=== PATIENT | female | born 1995 | race Hispanic/Latino ===

== ENCOUNTER 2021-12-29 10:48 | Emergency (ER) | payer MEDICARE, MEDICAID ==
--- NOTE | 2021-12-29 11:46 | Emergency Department Report ---
ED General Adult HPI - General Chief complaint: Psych Stated complaint: SUICIDAL THOUGHTS Time Seen by Provider: 12/29/21 11:30 Source: patient, RN notes reviewed Mode of arrival: Ambulatory Limitations: No Limitations - History of Present Illness Initial comments: The patient was evaluated in the emergency department for symptoms described in the history of present illness. He/she was evaluated in the context of the global COVID-19 pandemic, which necessitated consideration that the patient might be at risk for infection with the virus that causes COVID-19. Institutional protocols and algorithms that pertain to the evaluation of patients at risk for COVID-19 are in a state of rapid change based on information released by regulatory bodies including the CDC and federal and state organizations. These policies and algorithms were followed during the patient's care in the emergency department. Please note that these policies, procedures and recommendations changed on a rapid basis. The patient is a pleasant and cooperative 26-year-old female, who presents to the ER today with a complaint of painless suicidality. She reports no intenti onal overdose. She reports that she is partially COVID-19 vaccinated. She denies urinary symptoms. She reports the symptoms started this morning. She reports that they are chronic. She denies physical pain. She then endorses that she has a mild headache which is frontal. The headache is not sudden or thunderclap in nature. The headache is not maximal in intensity. It is not described as the worst headache of her life. -: Gradual, hour(s) Severity scale (0 -10): 0 Consistency: constant Improves with: none Worsens with: none Associated Symptoms: denies other symptoms, headaches - Related Data Allergies Allergy/AdvReac Type Severity Reaction Status Date / Time No Known Allergies Allergy Verified 12/29/21 10:50 ED Review of Systems ROS: Stated complaint: SUICIDAL THOUGHTS Other details as noted in HPI Comment: All other systems reviewed and negative Neurological: headache Psychiatric: suicidal thoughts ED Past Medical Hx - Past Medical History Previous Medical History?: Yes Hx Psychiatric Treatment: Yes (schizophrenia, anxiety) - Surgical History Past Surgical History?: No ED Physical Exam - General Limitations: No Limitations General appearance: alert, in no apparent distress - Head Head exam: Present: atraumatic, normocephalic - Eye Eye exam: Present: normal appearance, PERRL, EOMI. Absent: nystagmus - ENT ENT exam: Present: normal exam, normal orophraynx, mucous membranes moist, normal external ear exam - Neck Neck exam: Present: normal inspection, full ROM. Absent: tenderness, meningismus - Respiratory Respiratory exam: Present: normal lung sounds bilaterally. Absent: respiratory distress, wheezes, rales, rhonchi, stridor, decreased breath sounds - Cardiovascular Cardiovascular Exam: Present: regular rate, normal rhythm, normal heart sounds. Absent: bradycardia, tachycardia, irregular rhythm, systolic murmur, diastolic murmur, rubs, gallop - GI/Abdominal GI/Abdominal exam: Present: soft. Absent: distended, tenderness, guarding, rebound, rigid, pulsatile mass - Extremities Exam Extremities exam: Present: normal inspection, full ROM, other (2+ pulses noted in the bilateral upper and lower extremities. There is no palpable cord. negative Homans sign. Muscular compartments are soft. The pelvis is stable.). Absent: pedal edema, calf tenderness - Back Exam Back exam: Present: normal inspection, full ROM. Absent: tenderness, CVA tenderness (R), CVA tenderness (L), paraspinal tenderness, vertebral tenderness - Neurological Exam Neurological exam: Present: alert, oriented X3, normal gait, reflexes normal, other (No facial droop. Tongue midline. Extraocular movements intact bilaterally. Facial sensation intact to light touch in V1, V2, V3 distribution bilaterally. 5 and a 5 strength in 4 extremities. Sensation intact to light touch in 4 extremities.). Absent: motor sensory deficit - Psychiatric Psychiatric exam: Present: flat affect, suicidal ideation - Skin Skin exam: Present: warm, dry, intact, normal color. Absent: rash ED Course Vital Signs 12/29/21 12/29/21 12/29/21 10:50 11:33 11:35 Temperature 98.1 F 98.7 F Pulse Rate 78 67 Respiratory 18 17 Rate Blood Pressure Blood Pressure 112/68 99/64 [Right] O2 Sat by Pulse 100 100 100 Oximetry O2 Sat by Pulse Oximetry [ Digit-Finger] 12/29/21 12/29/21 12/29/21 11:36 11:46 12:00 Temperature Pulse Rate Respiratory 15 Rate Blood Pressure 94/61 94/61 Blood Pressure [Right] O2 Sat by Pulse 100 99 99 Oximetry O2 Sat by Pulse Oximetry [ Digit-Finger] 12/29/21 12/29/21 12/29/21 12:16 12:30 12:50 Temperature Pulse Rate Respiratory Rate Blood Pressure 94/61 94/61 96/69 Blood Pressure [Right] O2 Sat by Pulse 100 100 99 Oximetry O2 Sat by Pulse Oximetry [ Digit-Finger] 12/29/21 12/29/21 12/29/21 13:00 13:06 13:16 Temperature Pulse Rate Respiratory Rate Blood Pressure 103/61 103/61 Blood Pressure [Right] O2 Sat by Pulse 99 100 Oximetry O2 Sat by Pulse 99 Oximetry [ Digit-Finger] 12/29/21 12/29/21 13:30 13:40 Temperature 97.9 F Pulse Rate Respiratory Rate Blood Pressure 115/63 Blood Pressure [Right] O2 Sat by Pulse 100 Oximetry O2 Sat by Pulse Oximetry [ Digit-Finger] - Reevaluation(s) Reevaluation #1: 12/29/21 13:04 Differential diagnosis, including but not limited to: Medical clearance for psychiatric placement, migraine headache, tension headache, cluster headache, encounter for behavioral health screening, encounter for medical screening, passive suicidality Assessment and plan: 26-year-old female who currently resides in a snf, who has an outpatient psychiatrist, presenting to the ER today with a primary complaint of suicidality without plan. While she has a flat affect, she is awake, alert, oriented x3, walks with a steady gait, is not encephalopathic, and is not acutely agitated, combative or belligerent. Her laboratory studies are nonactionable and unremarkable She denies COVID symptoms. Urinalysis and urine drug screen pending, but these are not required for medical clearance, these are obtained in anticipation of psychiatric request. We have requested a psychiatric consultation and evaluation. At this point in time, this patient does not appear to have an immediate medical contraindication to psychiatric admission, evaluation, consultation placement. Patient has a GCS of 15 with an NIH score of 0, and a benign and unremarkable physical/neurologic examination. Neuroimaging not indicated for benign headache, supportive care, analgesia, outpatient follow-up 12/29/21 13:54 Psychiatry team have advised discharge and suggest that this patient is malingering for the purposes of secondary gains. They do not recommend 1013 hold or involuntary confinement. Patient resting comfortably in stretcher at this time, and does not appear to be in any acute distress. Discharged with outpatient resources - Pulse Oximetry Interpretation Digit-Finger Initial Pulse Oximetry Readin O2 Sat by Pulse Oximetry: 99 Actions Taken: none ED Medical Decision Making - Lab Data Result diagrams: 12/29/21 11:55 12/29/21 11:55 Vital Signs 12/29/21 12/29/21 12/29/21 10:50 11:33 11:35 Temperature 98.1 F 98.7 F Pulse Rate 78 67 Respiratory 18 17 Rate Blood Pressure 112/68 99/64 [Right] O2 Sat by Pulse 100 100 100 Oximetry 12/29/21 11:36 Temperature Pulse Rate Respiratory 15 Rate Blood Pressure [Right] O2 Sat by Pulse 100 Oximetry Lab Results 12/29/21 12/29/21 12/29/21 Range/Units 11:55 11:55 11:55 WBC 7.6 (4.5-11.0) K/mm3 RBC 4.04 (3.65-5.03) M/mm3 Hgb 13.6 (10.1-14.3) gm/dl Hct 40.6 (30.3-42.9) % MCV 101 H (79-97) fl MCH 34 H (28-32) pg MCHC 34 (30-34) % RDW 12.5 L (13.2-15.2) % Plt Count 293 (140-440) K/mm3 Sodium 140 (137-145) mmol/L Potassium 4.2 (3.6-5.0) mmol/L Chloride 105.0 (98-107) mmol/L Carbon Dioxide 22 (22-30) mmol/L Anion Gap 17 mmol/L BUN 6 L (7-17) mg/dL Creatinine 0.9 (0.6-1.2) mg/dL Estimated GFR > 60 ml/min BUN/Creatinine Ratio 7 % Glucose 102 H (65-100) mg/dL Calcium 9.7 (8.4-10.2) mg/dL HCG, Qual (Negative) Salicylates < 0.3 L (2.8-20.0) mg/dL Acetaminophen (10.0-30.0) ug/mL Valproic Acid < 2.8 L (50-100) ug/mL Plasma/Serum Alcohol (0-0.07) % 12/29/21 12/29/21 12/29/21 Range/Units 11:55 11:55 11:55 WBC (4.5-11.0) K/mm3 RBC (3.65-5.03) M/mm3 Hgb (10.1-14.3) gm/dl Hct (30.3-42.9) % MCV (79-97) fl MCH (28-32) pg MCHC (30-34) % RDW (13.2-15.2) % Plt Count (140-440) K/mm3 Sodium (137-145) mmol/L Potassium (3.6-5.0) mmol/L Chloride (98-107) mmol/L Carbon Dioxide (22-30) mmol/L Anion Gap mmol/L BUN (7-17) mg/dL Creatinine (0.6-1.2) mg/dL Estimated GFR ml/min BUN/Creatinine Ratio % Glucose (65-100) mg/dL Calcium (8.4-10.2) mg/dL HCG, Qual Negative (Negative) Salicylates (2.8-20.0) mg/dL Acetaminophen 5.0 L (10.0-30.0) ug/mL Valproic Acid (50-100) ug/mL Plasma/Serum Alcohol < 0.01 (0-0.07) % Critical care attestation.: If time is entered above; I have spent that time in minutes in the direct care of this critically ill patient, excluding procedure time. ED Disposition Clinical Impression: Encounter for medical screening examination, Encounter for behavioral health screening, Headache Disposition: 06 HOME HEALTH CARE SERVICE Is pt being admited?: No Does the pt Need Aspirin: No Condition: Stable Additional Instructions: Follow-up with outpatient resources that have been provided to the patient. Follow-up with your therapist or psychiatrist within the next week. Follow-up with a primary care doctor within the next month. Avoid consumption of alcohol, tobacco, and drug products. Please return to the emergency room right away with new pain, worsened pain, migration of pain, projectile vomiting, change in mental status, confusion, inability tolerate liquid feeds, new, worsened or different symptoms not present on the initial emergency room evaluation Referrals: [facility] [Outside] - 3-5 Days [facility] [Outside] - 3-5 Days
[2021-12-29 12:23] LABS: Hematocrit 40.6 % (30.3-42.9); Hemoglobin 13.6 gm/dl (10.1-14.3); Mean Corpuscular HGB Conc 34 % (30-34); Mean Corpuscular Volume 101 fl (79-97); Platelet Count 293 K/mm3 (140-440); Red Blood Count 4.04 M/mm3 (3.65-5.03); Red Cell Distribution Width 12.5 % (13.2-15.2)
[2021-12-29 12:44] LABS: BUN/Creatinine Ratio 7; Blood Urea Nitrogen 6 mg/dL (7-17); Calcium 9.7 mg/dL (8.4-10.2); Hemolysis Index 5
[2021-12-29 13:19] LABS: Bilirubin,Urine NEG (Negative); Blood,Urine NEG (Negative); Color,Urine Yellow (Yellow); Protein,Urine <15 mg/dL mg/dL (Negative); Urobilinogen,Urine < 2.0 mg/dL (<2.0)
[2021-12-29 13:30] LABS: Amphetamine Screen,Urine PRESUMPTIVE NEGATIVE; Benzodiazepines Screen,Urine PRESUMPTIVE NEGATIVE; Cannabinoid Screen,Urine PRESUMPTIVE NEGATIVE; Cocaine Screen,Urine PRESUMPTIVE NEGATIVE; Methadone Screen,Urine PRESUMPTIVE NEGATIVE; Opiate Screen,Urine PRESUMPTIVE NEGATIVE
[2021-12-29 17:59] VITALS: BP 103/60
== END 2021-12-29 17:59 | disposition home health service (06) ==
LOC: ED 10:48
DX: Z00.00 Encounter for general adult medical examination without abnormal findings (principal); Z13.30 Encounter for screening examination for mental health and behavioral disorders, unspecified; R51.9 Headache, unspecified
CPT/HCPCS: 36415; 80048; 80164; 80178; 80307; 80320; 81001; 84703; 85027; 99284; G0480